=== PATIENT | female | born 1950 | race Caucasian/White ===

== ENCOUNTER → 2017-05-01 | Outpatient (CLI) | payer OTHER ==
[~2017-05-01] MED LIST: CLINDAMYCIN HC300 MG PO; NORCO 5-325 TA1 EACH PO
== END ==
LOC: CARD 12:45
DX: D68.59 Other primary thrombophilia (principal); I08.1 Rheumatic disorders of both mitral and tricuspid valves

== ENCOUNTER → 2018-09-22 | Outpatient (CLI) | payer OTHER | END | disposition home or self-care (01) | LOC: RAD 15:14 | DX: I51.7 Cardiomegaly (principal) ==

== ENCOUNTER → 2020-12-11 | Outpatient (CLI) | payer MEDICARE, MEDICAID | END | disposition home or self-care (01) | LOC: RAD 12:23 | PROVIDERS: ATTEND Internal Medicine | DX: M25.512 Pain in left shoulder (principal) ==

== ENCOUNTER → 2024-10-05 | Outpatient (CLI) | payer OTHER, MEDICAID | END | disposition home or self-care (01) | LOC: RAD 14:12 | PROVIDERS: ATTEND Registered Nurse | DX: Z01.810 Encounter for preprocedural cardiovascular examination (principal); J98.4 Other disorders of lung ==